=== PATIENT | male | born 1990 | race Caucasian/White ===

== ENCOUNTER 2019-11-11 11:37 | Day surgery (SDC) | payer BC, OTHER ==
[~2019-11-11 11:37] MED LIST: Lactated Ringers 1,000 ML IV SCH; Sodium Chloride 0.9% 10 ML Syringe FLUSH PRN
[2019-11-11] MEDS ORDERED: Propofol 200 MG/20 ML SDV IV ONE (11:38)
[2019-11-11] MEDS ORDERED: Midazolam 1 MG/ML 2 ML SDV IV ONE (11:38)
[2019-11-11] MEDS ORDERED: Midazolam 1 MG/ML 2 ML SDV ONE (12:02)
[2019-11-11] MEDS ORDERED: Lidocaine 2% 5 ML SDV ONE (12:02)
[2019-11-11] MEDS ORDERED: Propofol 200 MG/20 ML SDV ONE (12:02)
--- NOTE | 2019-11-11 13:09 | PCM.PN ---
- General Info Date of Service: 11/11/19 - Review of Systems Systems Review Comment:: 29-year-old male referred for EGD. He has been having symptoms of acid reflux. These have been occurring despite the use of omeprazole. He denies dysphasia. The majority of his symptoms consist of burning discomfort in the upper chest. I have discussed the proposed upper endoscopy with the patient. He agrees to proceed excepting risks. His recent history and physical is reviewed and no significant changes are noted. - Patient Data Vitals - Most Recent: Last Vital Signs Temp 97 F 11/11/19 12:06 Pulse 79 11/11/19 12:06 Resp 16 11/11/19 12:06 BP 133/108 H 11/11/19 12:06 Pulse Ox 98 11/11/19 12:06 Weight - Most Recent: 77.111 kg Lab Results Last 24 Hours: Laboratory Results - last 24 hr 11/11/19 Range/Units 08:50 COVID-19 ([facility]) Negative (NEGATIVE) Med Orders - Current: Current Medications Lactated Ringer's (Ringers, Lactated) 1,000 mls @ 50 mls/hr IV ASDIRECTED [facility] Last Admin: 11/11/19 12:15 Dose: 50 mls/hr Documented by: Sodium Chloride (Saline Flush) 10 ml FLUSH Q8HR PRN PRN Reason: keep vein open Discontinued Medications Lidocaine (Xylocaine-Mpf 2%) Confirm Administered Dose 5 ml .ROUTE .STK-MED ONE Stop: 11/11/19 12:03 Midazolam HCl (Versed 1 Mg/Ml) Confirm Administered Dose 2 mg .ROUTE .STK-MED ONE Stop: 11/11/19 12:03 Propofol (Diprivan 20 Ml) Confirm Administered Dose 200 mg .ROUTE .STK-MED ONE Stop: 11/11/19 12:03 Sepsis Event Note - Focused Exam Vital Signs: Vital Signs Temp Pulse Resp BP Pulse Ox 11/11/19 12:06 97 F 79 16 133/108 H 98 - Problem List Review Problem List Initiated/Reviewed/Updated: Yes - My Orders Last 24 Hours: My Active Orders 11/11/19 07:26 Resuscitation Status Routine 11/11/19 Breakfast Nothing Per Oral Diet [DIET] 11/11/19 11:00 Patient to Empty Bladder [RC] ASDIRECTED Peripheral IV Care [RC] . DIRECTED Lactated Ringers [Ringers, Lactated] 1,000 ml IV ASDIRECTED Sodium Chloride 0.9% [Saline Flush] 10 ml FLUSH Q8HR PRN Peripheral IV Insertion Adult [OM.PC] Routine 11/11/19 12:45 Verify Patient Consent Obtain [RC] ASDIRECTED - Assessment Assessment:: Acid reflux symptoms - Plan Plan:: EGD
--- NOTE | 2019-11-11 13:34 | PCM.OPNOTE ---
- General Post-Op/Procedure Note Date of Surgery/Procedure: 11/11/19 Operative Procedure(s): EGD with Biopsy Findings: Reflux esophagitis with irregularity of GE Jct Exam otherwise normal Pre Op Diagnosis: Acid Reflux Post-Op Diagnosis: Reflux Esophagitis Anesthesia Technique: [facility] [place] Surgeon: Mervin Benavides Pathology: Biopsies of Gastric Antrum and Esophagus EBL in mLs: 3 Complications: None Condition: Good
[2019-11-11] MEDS ORDERED: Omeprazole 20 MG Cap.CR PO ONE (14:00)
--- NOTE | 2019-11-11 15:19 | OR ---
DATE OF SURGERY: 11/11/2019 SURGEON: Mervin Benavides MD PREOPERATIVE DIAGNOSIS: Acid reflux. POSTOPERATIVE DIAGNOSIS: Reflux esophagitis. OPERATION PERFORMED: Esophagogastroduodenoscopy with biopsy. INDICATIONS FOR SURGERY: This 29-year-old male is having increasing symptoms of acid reflux with burning pain in his chest after eating. He is having to increase his medication to help control symptoms and is referred for diagnostic upper endoscopy. FINDINGS: On upper endoscopy, the patient's Z-line is approximately 40 cm from the incisors. It is somewhat irregular with some salmon-colored mucosa extending up as much as 2 cm in one area. No mass or stenosis is identified. The remainder of the esophagus including the upper portion of the esophagus where the patient is having symptoms appears normal. The patient's gastric mucosa as well as the duodenal mucosa to the 3rd portion appears normal. DESCRIPTION OF PROCEDURE: The patient was taken to the operating room. He was given intravenous sedation and the Olympus gastroscope was advanced into the oral cavity through a mouth guard. Under direct visualization, the scope was advanced through the oropharynx and down into the esophagus and then down through the stomach and duodenum to the third portion of the duodenum. Carefully, this duodenum was examined and then the scope was withdrawn back into the stomach where full examination including retroflexed examination of the fundus was performed. Random biopsies of the antrum were taken to rule out H pylori. The GE junction and distal esophagus were then carefully examined and biopsies were taken at the GE junction as well as the distal esophagus. The remainder of the esophagus was also re-examined and biopsies in the more proximal esophagus were taken to rule out eosinophilic esophagitis. The scope was removed and the patient was taken from the operating room in satisfactory condition. ESTIMATED BLOOD LOSS: 3 mL. COMPLICATIONS: None. PROGNOSIS: Good. /[id number]/MODL
[2019-11-11] MEDS ORDERED: Bupivacaine 0.25% 10 ML SDV ONE (16:09)
[2019-11-12] MEDS ORDERED: Omeprazole 20 MG Cap.CR PO ONE (14:09)
== END 2019-11-11 14:45 | disposition home or self-care (01) ==
LOC: KA.SDS 11:37
PROVIDERS: ATTEND Surgery
DX: K29.50 Unspecified chronic gastritis without bleeding (principal); K21.0 Gastro-esophageal reflux disease with esophagitis; I51.89 Other ill-defined heart diseases; Z01.812 Encounter for preprocedural laboratory examination; F17.210 Nicotine dependence, cigarettes, uncomplicated; Z20.828 Contact with and (suspected) exposure to other viral communicable diseases; Z79.899 Other long term (current) drug therapy
CPT/HCPCS: 00731; 43239; 87635; A9270; J2250; J2704; J7120; U0002